=== PATIENT | female | born 1965 | race Two or more races ===

== ENCOUNTER 2018-11-02 22:38 | Emergency (ER) | payer OTHER ==
[~2018-11-02] VITALS: Ht 152.4 cm; Wt 73.5 kg
== END 2018-11-03 | disposition left against medical advice (07) ==
LOC: ER 22:38 → CPU-OBS 11-03 00:26 → ER 11-03 00:26
DX: R07.89 Other chest pain (principal)
CPT/HCPCS: G0378; G0379; 93005